=== PATIENT | female | born 1995 | race Caucasian/White ===

== ENCOUNTER 2023-06-23 14:28 | Emergency (ER) | payer OTHER, SELFPAY ==
[2023-06-23] VITALS (16 sets, daily range): BP systolic 102–146; BP diastolic 56–93; PULSE 64–125; RESP 13–23; TEMP 36.9; O2SAT 96–100; BMI 22.6
--- NOTE | 2023-06-23 14:38 | DI.RAD.S_ITS ---
PROCEDURE: XR CHEST 1V INDICATIONS: chest pain TECHNIQUE: One view of the chest was acquired. COMPARISON: None. FINDINGS: Surgical changes and devices: None. Lungs and pleura: Lungs are clear. No pleural effusions or pneumothorax. Mediastinum: Mediastinal contours appear normal. Heart size is normal. Bones and chest wall: No suspicious bony lesions. Overlying soft tissues appear unremarkable. IMPRESSION: Normal portable chest. Dictated by: Odilon Matute M.D. on 06/23/2023 at 13:54 Approved by: Odilon Matute M.D. on 06/23/2023 at 13:55
--- NOTE | 2023-06-23 14:58 | ED_ITS ---
HPI - Chest Pain General Chief Complaint: Chest Pain Stated Complaint: neck pain/dizziness/near syncope Time Seen by Provider: 06/23/23 14:58 Source: patient and family Mode of arrival: Ambulatory History of Present Illness HPI narrative: 27-year-old woman with no significant medical history. She had a negative test on June 12 with a Depo-Provera injection that same day, she is been on this medication for over 10 years. On June 16 she had an episode while at work, she works as a waiter/waitress tavern, with brief palpitations followed by upper extremity paresthesias that lasted for a few moments only. She is had recurrent episodes of palpitations with acute dizziness describes some posterior neck pain radiating up from the back that feels like her head is going to explode. She does not describe any anxiety nor history of anxiety with any of this. With some of the episodes she has noticed shortness of breath and tight chest. She notes that increased burping can sometimes be helpful, this is quite unusual for her. She does have a history of intermittent headaches for which she uses small amounts of ibuprofen. She is been seen at [facility] twice this week for similar complaints, on June 18 and June 20. With these workups she is had reportedly normal EKGs (EKGs itself is not available for review and report is ?normal? actual QT is not reported) normal blood work, D- dimer, sensitive troponin and thyroid study. She tried to get into see her primary care doctor and 1st appointment is available July 15. She continues to have intermittent episodes of paresthesias in the upper and lower extremities that are brief and described as zinging type pain. She notes that she is had episodes that do seem to be positional with her head both left, right and looking up but symptoms are not consistently reproduced with head movement. She does not describe significant vertigo. She is had no recent fevers, upper respiratory infections or immunizations. There is no history of neurologic disease or complex migraine in her family Related Data Allergies Allergy/AdvReac Type Severity Reaction Status Date / Time No Known Drug Allergies Allergy Verified 06/23/23 14:44 Review of Systems Review of Systems Narrative: Pertinent positive and negative findings as per HPI Patient History Social History Smoking Status: Current every day smoker Smoking Status: Current every day smoker tobacco type: vaping Substance Use Type: does not use Exam Initial Vital Signs Initial Vital Signs: Vital Signs Temperature 98.5 F 06/23/23 14:30 Pulse Rate 125 H 06/23/23 14:30 Respiratory Rate 20 06/23/23 14:30 Blood Pressure 146/93 H 06/23/23 14:30 Pulse Oximetry 99 06/23/23 14:30 Oxygen Delivery Method Room Air 06/23/23 14:30 General: Healthy appearing, in no acute distress. Able to give a complete and coherent history. Well-nourished well-developed HEENT: Moist mucous membranes, normal sclera with reactive pupils, symptoms are not reproduced with provocative head maneuvers Neck: No cervical adenopathy, no thyroid masses or nodules, supple Respiratory: Lungs are clear to auscultation, no wheezing no rales no rhonchi. Full and symmetrical air movement Cardiac: Regular rate and rhythm no murmurs no bruits. Heart rate does increase over 20 points when going from a sitting to a standing position Abdomen: Soft, nontender, good bowel tones, no flank pain Skin: Warm and dry, no rashes Neurologic: Grossly neurologically intact with no obvious asymmetries or abnormalities, no hyper reflexia, no reproducible paresthesias at this time Extremities: No trauma, well perfused Psych: Cooperative, appropriate insight and affect Course Orders Ordered: ED Orders 06/23/23 14:38 XR chest 1V Stat EKG-12 Lead Stat 06/23/23 14:48 Complete Blood Count AUTO DIFF Stat Comprehensive Metabolic Panel Stat Lipase Stat Magnesium Stat PTT Partial Thromboplastin Harley Stat Prothrombin Time INR Stat Troponin & CK Cardiac Panel Stat 06/23/23 15:35 MR head/brain wo/w con Stat Discontinued Medications Diphenhydramine HCl (Diphenhydramine 50 Mg/Ml Vial) 25 mg IV NOW ONE Stop: 06/23/23 15:46 Last Admin: 06/23/23 16:39 Dose: 25 mg Documented By: CORTNEY Sodium Chloride (Normal Saline 0.9%) 1,000 mls @ 1,000 mls/hr IV BOLUS ONE Stop: 06/23/23 16:44 Last Infusion: 06/23/23 17:41 Dose: Infused Documented By: Admin: 06/23/23 16:39 Dose: 1,000 mls/hr Documented By: CORTNEY Ketorolac Tromethamine (Ketorolac 30 Mg/Ml Vial) 15 mg IV NOW ONE Stop: 06/23/23 15:46 Last Admin: 06/23/23 16:37 Dose: 15 mg Documented By: CORTNEY Metoclopramide HCl (Metoclopramide 10 Mg/2 Ml Inj) 10 mg IV NOW ONE Stop: 06/23/23 15:46 Last Admin: 06/23/23 16:37 Dose: 10 mg Documented By: CORTNEY Vital Signs Vital signs: Vital Signs - 8 hr 06/23/23 14:30 06/23/23 14:51 06/23/23 14:57 Temperature 98.5 F Pulse Rate 125 H 90 Respiratory Rate 20 14 Blood Pressure 146/93 H 122/58 L Pulse Oximetry 99 Oxygen Delivery Method Room Air 06/23/23 14:57 06/23/23 15:00 06/23/23 15:00 Temperature Pulse Rate 96 H 80 Respiratory Rate 14 14 Blood Pressure 115/61 Pulse Oximetry 100 100 Oxygen Delivery Method 06/23/23 15:30 06/23/23 15:30 06/23/23 16:33 Temperature Pulse Rate 74 68 Respiratory Rate 15 20 Blood Pressure 114/69 Pulse Oximetry 96 Oxygen Delivery Method 06/23/23 16:35 06/23/23 16:35 06/23/23 16:49 Temperature Pulse Rate 77 Respiratory Rate 19 Blood Pressure 110/70 109/68 Pulse Oximetry 100 Oxygen Delivery Method 06/23/23 16:49 06/23/23 17:00 06/23/23 17:30 Temperature Pulse Rate 68 69 64 Respiratory Rate 23 22 16 Blood Pressure 112/68 Pulse Oximetry 100 100 100 Oxygen Delivery Method 06/23/23 17:36 06/23/23 17:36 06/23/23 17:45 Temperature Pulse Rate 76 69 Respiratory Rate 19 16 Blood Pressure 110/63 Pulse Oximetry 100 99 Oxygen Delivery Method 06/23/23 17:45 Temperature Pulse Rate Respiratory Rate Blood Pressure 102/58 L Pulse Oximetry Oxygen Delivery Method MDM - Chest Pain Lab Data 06/23/23 14:48 06/23/23 14:48 Labs: Lab Results 06/23/23 Range/Units 14:48 WBC 6.5 (4.5-11.0) X10^3/uL RBC 4.95 (4.0-5.2) X10^6/uL Hgb 15.9 (12.0-16.0) g/dL Hct 45.9 (36-46) % MCV 92.8 (80-100) fL MCH 32.1 (26-34) PG MCHC 34.6 (30-36) % RDW 12.0 (11.6-14.8) % Plt Count 251 (150-400) X10^3/uL Neut % (Auto) 57.9 (50-75) % Lymph % (Auto) 34.2 (25-40) % Levy % (Auto) 6.5 (3-14) % Eos % (Auto) 0.7 L (2-4) % Baso % (Auto) 0.7 (0-2) % Neut # (Auto) 3800 (5662-1119) /uL Lymph # (Auto) 2200 (5305-8053) /uL Levy # (Auto) 400 (0-900) /uL Eos # (Auto) 0 (0-450) /uL Baso # (Auto) 0 (0-100) /uL PT 11.9 (10.1-12.7) SECONDS INR 1.0 (0.9-1.3) APTT 30 (26-36) SECONDS Sodium 140 (137-145) mmol/L Potassium 3.3 L (3.4-5.1) mmol/L Chloride 106 (98-107) mmol/L Carbon Dioxide 20 L (22-32) mmol/L BUN 13 (7-17) mg/dL Creatinine 0.75 (0.52-1.04) mg/dL Estimated GFR > 60 (>60) mL/min BUN/Creatinine Ratio 17.3 (6-22) Glucose 102 H (70-100) mg/dL Calcium 10.0 (8.4-10.2) mg/dL Magnesium 2.2 (1.6-2.3) mg/dL Total Bilirubin 0.8 (0.2-1.3) mg/dL AST 22 (14-36) IU/L ALT 19 (<35) IU/L Alkaline Phosphatase 59 (38-126) U/L Total Creatine Kinase 58 (30-135) U/L Troponin I < 0.012 (0.01-0.034) ng/mL Total Protein 8.7 H (6.3-8.2) g/dL Albumin 5.1 H (3.5-5.0) g/dL Globulin 3.6 (1.7-4.1) g/dL Albumin/Globulin Ratio 1.4 (1.0-2.8) Lipase 91 (23-300) U/L MDM Narrative Medical decision making narrative: CC: Acute onset over 1 week with intermittent paresthesias, dizziness, palpitations and headache Complicating co-morbidities: No history of depression, anxiety. She does have regular headaches and mild migraines Data collected from: patient, Medical records reviewed: ER notes from [facility] on June 18 and are reviewed Differential considered: Cardiac arrhythmia, complex migraine, multiple sclerosis, brain tumor Exam documented above, pertinent findings include: Mild orthostasis with heart rate increasing while standing with otherwise unremarkable exam including neurologic exam Lab Test results independently reviewed as above. Pertinent findings: CBC is entirely unremarkable coagulation studies are reassuring Chemistries show mildly low potassium at 3.4 otherwise unremarkable Independently reviewed EKG sinus rhythm with prolonged QTC at 551 No acute ischemic changes Imaging studies independently reviewed: Chest x-ray is unremarkable Brain MRI is reassuring with no evidence of tumor, mass or multiple sclerosis/demyelinating abnormalities Treatments:IV fluid, IV reglan, IV benadryl and IV toradol Re-evaluations: Headache is significantly improved. She is no longer orthostatic when standing up. Still feels a bit ?off? but overall significantly improved Discussion: 27-year-old woman with acute onset of episodes of near vertigo, sensation that she is going to pass out associated with palpitations sometimes associated with acute turning of her head sometimes with standing sometimes with sitting she is been evaluated at [facility] twice and comes here as symptoms seem to be worsening. Labs are reviewed from [facility]. Physical exam today is reassuring. With the headache I am wondering if she is actually having a migraine/complex migraine to explain her persistent symptoms. With the normal MRI I am not concerned for masses, tumors or demyelinating disorders. Certainly may be a virus with inner ear abnormalities in which case symptoms are going to improve. Of note is her prolonged QT. Notes from [facility] EKGs do not mentioned this. It may be a spurious event but does deserve at least a repeat EKG to see if it persists if so may benefit from cardiology referral. I have given her copies of the records from [facility], my entire note, MRI results, x-ray results and lab studies [place]. [place] have an appointment on the but is hoping to get an ER follow-up sooner than that. Have encouraged her to return if symptoms worsen or she develops new findings. At this point she is safe for discharge Discharge Plan Departure Patient Disposition: Home Clinical Impression: Prolonged QT interval Migraine Qualifiers: Migraine type: unspecified Status migrainosus presence: without status migrainosus Intractability: not intractable Qualified Code(s): G43.909 - Migraine, unspecified, not intractable, without status migrainosus Instructions: DI for Migraine Activity Restrictions/Additional Instructions: Thank you for coming in today I am sorry you have been suffering with these symptoms all week. Fortunately, I am not finding any life-threatening abnormalities. Your blood work is reassuring. There is no evidence of acute coronary syndrome, pulmonary embolism or cardiomyopathy. Your EKG did show a prolonged QTC interval. Your EKG will need to be repeated as an outpatient to see if this was a 1 time abnormality or something that needs further workup as an outpatient We treated your headache with fluids, Toradol, Reglan and Benadryl and that did seem to help. With the fluids your heart rate did not change quite as rapidly going from a sitting to a standing position. The chest x-ray was unremarkable. MRI of your brain shows a beautiful brain with no evidence of tumors, masses and no evidence of multiple sclerosis or other demyelinating diseases. I have given you copies of your labs and imaging reports and encourage you to take all of these medical records with you to your follow-up appointment with your primary care provider. If you find that you are getting worse or develop any new symptoms, please feel free to return to the emergency department for further evaluation. Referrals: ProviderMakayla [Primary Care Provider] - Stand Alone Forms: Patient Portal/API
[2023-06-23 15:23] LABS: Add Manual Diff / Slide Review NO; Basophils Absolute Auto 0 /uL (0-100); Basophils Percent Auto 0.7 % (0-2); Eosinophils Absolute Auto 0 /uL (0-450); Eosinophils Percent Auto 0.7 % (2-4); Hematocrit 45.9 % (36-46); Hemoglobin 15.9 g/dL (12.0-16.0); Lymphocytes Absolute Auto 2200 /uL (1100-4500); Lymphocytes Percent Auto 34.2 % (25-40); Mean Corpuscular HGB Conc 34.6 % (30-36); Mean Corpuscular Hemoglobin 32.1 PG (26-34); Mean Corpuscular Volume 92.8 fL (80-100); Monocytes Absolute Auto 400 /uL (0-900); Monocytes Percent Auto 6.5 % (3-14); Neutrophils Absolute Auto 3800 /uL (1500-7000); Neutrophils Percent Auto 57.9 % (50-75); Platelet Count 251 X10^3/uL (150-400); Red Blood Cell Count 4.95 X10^6/uL (4.0-5.2); White Blood Cell Count 6.5 X10^3/uL (4.5-11.0)
[2023-06-23 15:30] LABS: Prothrombin Time 11.9 SECONDS (10.1-12.7)
[2023-06-23 15:33] LABS: PTT Partial Thromboplastin Tim 30 SECONDS (26-36)
[2023-06-23 15:35] LABS: Alanine Aminotransferase 19 IU/L (<35); Albumin 5.1 g/dL (3.5-5.0); Albumin Globulin Ratio 1.4 (1.0-2.8); Alkaline Phosphatase 59 U/L (38-126); Aspartate Aminotransferase 22 IU/L (14-36); BUN Creatinine Ratio 17.3 (6-22); Bilirubin Total 0.8 mg/dL (0.2-1.3); Blood Urea Nitrogen 13 mg/dL (7-17); Carbon Dioxide 20 mmol/L (22-32); Chloride 106 mmol/L (98-107); Creatine Kinase 58 U/L (30-135); Estimated Glomerular Filt Rate > 60 mL/min (>60); Globulin 3.6 g/dL (1.7-4.1); Glucose 102 mg/dL (70-100); HEMOLYSIS 18 (0-50); Lipase 91 U/L (23-300); Magnesium 2.2 mg/dL (1.6-2.3); Potassium 3.3 mmol/L (3.4-5.1); Sodium 140 mmol/L (137-145); Total Protein 8.7 g/dL (6.3-8.2)
--- NOTE | 2023-06-23 15:35 | DI.MRI.S_ITS ---
PROCEDURE: MR HEAD/BRAIN WO/W CON INDICATIONS: intermittent dizziness, paresthesia, ? MS TECHNIQUE: Noncontrast sagittal and axial FLAIR, axial and coronal T2 fast spin echo, axial VIBE, axial gradient echo, axial diffusion and ADC through the brain. After the administration of contrast, axial and coronal and sagittal VIBE with fat saturation through the brain. COMPARISON: [facility], CR, XR CHEST 1V, 06/23/2023, 14:38. FINDINGS: Image quality: Excellent. CSF spaces: Ventricles are normal in size and shape. Basal cisterns are patent. No extra-axial fluid collections. Brain: In this patient with this given history, scrutiny is given to No intracranial bleeds or mass effects. Valdivia-white matter interface appears intact. No abnormal intracranial enhancement. Diffusion weighted images show no acute ischemic insults. Brainstem appears normal. Normal intravascular flow voids are present. Skull and face: Calvarial marrow signal is normal. Orbits appear normal. Sinuses: Sinuses and mastoids are clear. IMPRESSION: Brain MRI within normal limits. No suspicious white matter lesions are seen to suggest multiple sclerosis. No masses or abnormal enhancement can be seen. No findings of acute or subacute infarction can be seen. Dictated by: Odilon aMtute M.D. on 06/23/2023 at 15:38 Approved by: Odilon Matute M.D. on 06/23/2023 at 15:40
[2023-06-23 15:46] LABS: Troponin I < 0.012 ng/mL (0.01-0.034)
--- NOTE | 2023-06-23 16:07 | PC.NURSE ---
attempt to administer medications but pt is at MRI currently
--- NOTE | 2023-06-23 16:09 | PC.NURSE ---
Pt in MRI.
--- NOTE | 2023-06-23 16:27 | PC.NURSE ---
Pt just returned from MRI, was in MRI roughly 45 minutes.
[2023-06-23] MEDS: KETOROLAC 30 MG/ML VIAL 15 MG IV (16:37)
[2023-06-23] MEDS: METOCLOPRAMIDE 10 MG/2 ML INJ IV (16:37)
[2023-06-23] MEDS: SODIUM CHLORIDE 0.9% 1,000 ML 1000 ML IV (16:39)
[2023-06-23] MEDS: diphenhydrAMINE 50 MG/ML VIAL 25 MG IV (16:39)
== END 2023-06-23 19:10 | disposition home or self-care (01) ==
PROVIDERS: Emergency Provider Emergency Medicine
DX: G43.909 Migraine, unspecified, not intractable, without status migrainosus (principal); R94.31 Abnormal electrocardiogram [ECG] [EKG]
CPT/HCPCS: 36415; 70553; 71045; 80053; 82550; 83690; 83735; 84484; 85025; 85610; 85730; 93005; 96361; 96374; 96375; 99284; J1200; J1885; J2765

== ENCOUNTER 2024-07-15 10:39 | Emergency (ER) | payer OTHER, SELFPAY ==
[2024-07-15 10:42] VITALS: BP 130/79; PULSE 95; RESP 14; TEMP 36.4; O2SAT 100; BMI 25.8
[2024-07-15 11:36] LABS: Urine Volume 10mL (spun)
[2024-07-15 11:37] LABS: Bacteria Urine None Seen; Culture Indicated Urine Cult Not Indicated; RBC Urine 5-10/HPF (0-5/HPF); Squamous Epithelial Cell Urine 1-5 /HPF (0-5/HPF); WBC Urine None Seen (0-5/HPF)
--- NOTE | 2024-07-15 14:28 | DI.US.S_ITS ---
PROCEDURE: US PELVIC COMPLETE INDICATIONS: PAIN TECHNIQUE: Real-time scanning was performed of the pelvic organs, with image documentation. Additional endovaginal scanning was necessary due to incomplete visualization of the adnexal and endometrial structures by transabdominal scanning. COMPARISON: None. FINDINGS: Uterus: Uterus is retroverted and normal in size at 6.8 x 2.8 x 4.2 cm. The myometrium is homogeneous. The endometrium measures 4.6 mm combined thickness. Ovaries: The right ovary measures 2.4 x 3.5 x 1.6 cm, with a calculated ovarian volume of 7.2 cc. Left ovary is not visualized. The ovaries have a normal sonographic appearance. Less than 12 follicles can be seen in each ovary. No adnexal masses are seen. Other: No pathologic free abdominal or pelvic fluid. IMPRESSION: Left ovary is not visualized. Otherwise, pelvic ultrasound is within normal limits. Approved by: Kian Huynh M.D. on 07/15/2024 at 15:07
--- NOTE | 2024-07-15 14:30 | ED.FEMALEGU ---
HPI - Female Genitourinary <SURAJ Glez Last Filed: 07/15/24 16:36> General Chief complaint: Vaginal Bleeding Stated complaint: Pelvic pain Time Seen by Provider: 07/15/24 13:57 Source: patient Mode of arrival: Ambulatory History of Present Illness HPI Narrative: Ms. Wayne is a pleasant 28-year-old female with no reported past medical history who presents to the emergency department for lower pelvic pain and vaginal bleeding x9 days following weightlifting. Patient reports suprapubic, mild pelvic pressure since weightlifting 9 days ago with vaginal spotting. Patient has been on Depo-Provera shot for many years, and therefore it does not usually have any menstrual bleeding. She is not due for her next dose until August. Reports experiencing similar symptoms in January and was worked up an outside facility with normal labs and imaging. She is but not currently sexually active, has no abnormal discharge, and is not concerned for STDs. She denies dysuria, melena, hematochezia, hematuria, flank pain, fevers, chills, nausea, vomiting, diarrhea, constipation. Related Data Allergies Allergy/AdvReac Type Severity Reaction Status Date / Time No Known Drug Allergies Allergy Verified 07/15/24 10:42 Review of Systems <Ashley Red PA-C - Last Filed: 07/15/24 16:36> Constitutional Constitutional: Denies chills, Denies fatigue, Denies fever(s) and Denies weakness Eyes Eyes: Denies change in vision ENT Ears, Nose, Mouth, and Throat: Denies dizziness Cardiovascular Cardiovascular: Denies chest pain, Denies lightheadedness and Denies dyspnea Respiratory Respiratory: Denies dyspnea Gastrointestinal Gastrointestinal: Denies diarrhea, Denies nausea and Denies vomiting Genitourinary Genitourinary: Reports abnormal vaginal bleeding, Denies hematuria, Denies difficulty voiding, Denies dysuria, Denies genital lesions, Denies dysuria, Reports pelvic pain and Denies vaginal discharge Neurologic Neurologic: Denies dizziness and Denies weakness Endocrine Endocrine: Denies fatigue Patient History <SURAJ Glez Last Filed: 07/15/24 16:36> tobacco type: vaping alcohol intake frequency: holidays/special occasions only Substance Use Type: does not use Exam <Ashley Red PA-C - Last Filed: 07/15/24 16:36> Initial Vital Signs Initial Vital Signs: Vital Signs Temperature 97.5 F L 07/15/24 10:42 Pulse Rate 95 H 07/15/24 10:42 Respiratory Rate 14 07/15/24 10:42 Blood Pressure 130/79 07/15/24 10:42 Pulse Oximetry 100 07/15/24 10:42 Oxygen Delivery Method Room Air 07/15/24 10:42 Const General: cooperative HENMT Head: normocephalic and atraumatic Mouth: moist mucous membranes Eyes Conjunctivae: conjunctivae normal Neck Neck: normal visual inspection Resp Effort & Inspection: normal respiratory effort, able to speak in complete sentences and no respiratory distress Auscultation: clear to auscultation bilaterally Cardio Rate: regular rate GI Inspection: non-distended Palpation: soft, No guarding, No hernia, No mass and tender (mild suprapubic discomfort to palpation) Auscultation: normal bowel sounds Other: Patient gave verbal consent for external genital exam. No inguinal hernias or external abnormalities noted. Tenderness with palpation of the vaginal introitus. Back/Spine/Pelvis Back: No CVA tenderness Skin General: no rashes or lesions noted Neuro General: patient alert and patient oriented x3 Extrem General: full ROM <Maura Hyman DO - Last Filed: 07/21/24 07:39> Initial Vital Signs Initial Vital Signs: Vital Signs Temperature 97.5 F L 07/15/24 10:42 Pulse Rate 95 H 07/15/24 10:42 Respiratory Rate 14 07/15/24 10:42 Blood Pressure 130/79 07/15/24 10:42 Pulse Oximetry 100 07/15/24 10:42 Oxygen Delivery Method Room Air 07/15/24 10:42 Course <Ashley Red PA-C - Last Filed: 07/15/24 16:36> Orders Ordered: Discontinued Medications Acetaminophen (Acetaminophen 325 Mg Tablet) 975 mg PO NOW ONE Stop: 07/15/24 14:36 Last Admin: 07/15/24 15:22 Dose: 975 mg Documented By: KALPESH Vital Signs Vital signs: Vital Signs - 8 hr 07/15/24 10:42 07/15/24 15:19 07/15/24 15:19 Temperature 97.5 F L Pulse Rate 95 H 56 L Respiratory Rate 14 Blood Pressure 130/79 118/67 Pulse Oximetry 100 99 Oxygen Delivery Method Room Air <Maura Hyman DO - Last Filed: 07/21/24 07:39> Orders Ordered: Discontinued Medications Acetaminophen (Acetaminophen 325 Mg Tablet) 975 mg PO NOW ONE Stop: 07/15/24 14:36 Last Admin: 07/15/24 15:22 Dose: 975 mg Documented By: RLS Vital Signs Vital signs: Vital Signs - 8 hr 07/15/24 10:42 07/15/24 15:19 07/15/24 15:19 Temperature 97.5 F L Pulse Rate 95 H 56 L Respiratory Rate 14 Blood Pressure 130/79 118/67 Pulse Oximetry 100 99 Oxygen Delivery Method Room Air MDM - Female Genitourinary <Ashley Red PA-C - Last Filed: 07/15/24 16:36> Medical Records Attestation: I reviewed the patient's medical records. Lab Data Lab results narrative: Labs reveal mild thrombocytopenia. Normal hemoglobin and hematocrit. No leukocytosis. UA reveals positive RBCs. 07/15/24 14:37 07/15/24 14:37 Labs: Lab Results 07/15/24 07/15/24 Range/Units 11:05 14:37 WBC 7.8 (4.5-11.0) X10^3/uL RBC 4.81 (4.0-5.2) X10^6/uL Hgb 15.5 (12.0-16.0) g/dL Hct 44.8 (36-46) % MCV 93.2 (80-100) fL MCH 32.3 (26-34) PG MCHC 34.6 (30-36) % RDW 11.8 (11.6-14.8) % Plt Count 138 L (150-400) X10^3/uL Neut % (Auto) 61.2 (50-75) % Lymph % (Auto) 32.6 (25-40) % [place] % (Auto) 5.4 (3-14) % Eos % (Auto) 0.4 L (2-4) % Baso % (Auto) 0.4 (0-2) % Neut # (Auto) 4700 (0681-2209) /uL Lymph # (Auto) 2500 (7157-9411) /uL [place] # (Auto) 400 (0-900) /uL Eos # (Auto) 0 (0-450) /uL Baso # (Auto) 0 (0-100) /uL Sodium 136 L (137-145) mmol/L Potassium 4.0 (3.4-5.1) mmol/L Chloride 109 H (98-107) mmol/L Carbon Dioxide 16 L (22-32) mmol/L BUN 10 (7-17) mg/dL Creatinine 0.70 (0.52-1.04) mg/dL Estimated GFR > 60 (>60) mL/min BUN/Creatinine Ratio 14.3 (6-22) Glucose 95 (70-100) mg/dL Calcium 9.0 (8.4-10.2) mg/dL Total Bilirubin 1.3 (0.2-1.3) mg/dL AST 34 (14-36) IU/L ALT 11 (<35) IU/L Alkaline Phosphatase 67 (38-126) U/L Total Protein 7.6 (6.3-8.2) g/dL Albumin 4.5 (3.5-5.0) g/dL Globulin 3.1 (1.7-4.1) g/dL Albumin/Globulin Ratio 1.5 (1.0-2.8) Lipase 71 (23-300) U/L Urine RBC 5-10/hpf H (0-5/HPF) Urine WBC None seen (0-5/HPF) Ur Squamous Epith Cells 1-5 /hpf (0-5/HPF) Urine Bacteria None seen (None) Ur Culture Indicated? Cult not indicated Vol Urine Centrifuged 10ml (spun) Point of Care Testing Test Results Negative Urine Dip Bedside Urine Glucose Negative Bedside Urine Bilirubin - Negative Bedside Urine Ketone - Negative Urine Specific [place] 1.005 Bedside Urine Occult Blood +++ Bedside Urine pH 6.5 Bedside Urine Protein - Negative Bedside Urine Urobilinogen - Negative Bedside Urine Nitrite - Negative Bedside Urine Leukocytes - Negative Esterase Imaging Data US - SOFTWARE INTEGRATOR: My Impression: No large fibroid. Left ovary not visualized. Radiologist's Impression: IMPRESSION: Left ovary is not visualized. Otherwise, pelvic ultrasound is within normal limits. MDM Narrative Medical decision making narrative: 28-year-old female with no reported past medical history who presents to the emergency department for lower pelvic pain and vaginal bleeding x9 days following weightlifting. Differential diagnosis includes but is not limited to: UTI, uterine fibroid, cervical polyp, anemia, endometriosis, dysmenorrhea, hernia, ureterolithiasis, etc. On exam patient is in no acute distress, nontoxic appearing, vital signs within normal limits. She has mild suprapubic discomfort and reports vaginal bleeding. No rebound or guarding. We will proceed with abdominal labs, pelvic ultrasound, pelvic exam. HCG is negative. We will treat with Tylenol. Bimanual and speculum examination declined by patient due to vaginal introitus discomfort. She had no external abnormalities. Pelvic ultrasound within normal limits however left ovary not visualized, patient having no left-sided pain. Lab work reassuring no anemia or leukocytosis. She does have mild thrombocytopenia which was discussed and advised repeat CBC with primary care physician. Wet prep vaginal swab negative, culture still pending. Patient advised to practice pelvic rest in addition to avoid heavy lifting until further evaluated by OBGYN. Advised Tylenol/ ibuprofen if needed for pain and we discussed strict ED return precautions. Patient is agreeable to discharge home in stable for discharge at this time. <Maura Hyman, - Last Filed: 07/21/24 07:39> Lab Data Labs: Lab Results 07/15/24 07/15/24 Range/Units 11:05 14:37 WBC 7.8 (4.5-11.0) X10^3/uL RBC 4.81 (4.0-5.2) X10^6/uL Hgb 15.5 (12.0-16.0) g/dL Hct 44.8 (36-46) % MCV 93.2 (80-100) fL MCH 32.3 (26-34) PG MCHC 34.6 (30-36) % RDW 11.8 (11.6-14.8) % Plt Count 138 L (150-400) X10^3/uL Neut % (Auto) 61.2 (50-75) % Lymph % (Auto) 32.6 (25-40) % [place] % (Auto) 5.4 (3-14) % Eos % (Auto) 0.4 L (2-4) % Baso % (Auto) 0.4 (0-2) % Neut # (Auto) 4700 (5988-0999) /uL Lymph # (Auto) 2500 (5750-5310) /uL [place] # (Auto) 400 (0-900) /uL Eos # (Auto) 0 (0-450) /uL Baso # (Auto) 0 (0-100) /uL Sodium 136 L (137-145) mmol/L Potassium 4.0 (3.4-5.1) mmol/L Chloride 109 H (98-107) mmol/L Carbon Dioxide 16 L (22-32) mmol/L BUN 10 (7-17) mg/dL Creatinine 0.70 (0.52-1.04) mg/dL Estimated GFR > 60 (>60) mL/min BUN/Creatinine Ratio 14.3 (6-22) Glucose 95 (70-100) mg/dL Calcium 9.0 (8.4-10.2) mg/dL Total Bilirubin 1.3 (0.2-1.3) mg/dL AST 34 (14-36) IU/L ALT 11 (<35) IU/L Alkaline Phosphatase 67 (38-126) U/L Total Protein 7.6 (6.3-8.2) g/dL Albumin 4.5 (3.5-5.0) g/dL Globulin 3.1 (1.7-4.1) g/dL Albumin/Globulin Ratio 1.5 (1.0-2.8) Lipase 71 (23-300) U/L Urine RBC 5-10/hpf H (0-5/HPF) Urine WBC None seen (0-5/HPF) Ur Squamous Epith Cells 1-5 /hpf (0-5/HPF) Urine Bacteria None seen (None) Ur Culture Indicated? Cult not indicated Vol Urine Centrifuged 10ml (spun) Point of Care Testing Test Results Negative Urine Dip Bedside Urine Glucose Negative Bedside Urine Bilirubin - Negative Bedside Urine Ketone - Negative Urine Specific [place] 1.005 Bedside Urine Occult Blood +++ Bedside Urine pH 6.5 Bedside Urine Protein - Negative Bedside Urine Urobilinogen - Negative Bedside Urine Nitrite - Negative Bedside Urine Leukocytes - Negative Esterase Discharge Plan Departure Patient Disposition: Home Clinical Impression: Vaginal bleeding, Pelvic pain Instructions: DI for Vaginal Bleeding Activity Restrictions/Additional Instructions: Today you were evaluated for vaginal pain and bleeding. Please follow-up with the primary care doctor for repeat complete blood cell count as your platelets were slightly low today. It is very important that you follow-up with an OBGYN for further evaluation of your vaginal discomfort and abnormal bleeding. Please do not do any heavy weight lifting until you are further evaluated by an OBGYN. Return to the emergency department immediately if you develop any new or worsening symptoms, fevers, chills, soaking a pad with blood within 1 hour or less or any other concerning symptoms. You may take Tylenol and ibuprofen alternating as needed for pain. Referrals: ProviderMakayla [Primary Care Provider] - Stand Alone Forms: Patient Portal/API/Survey ED Sign-out <Maura Hyman DO - Last Filed: 07/21/24 07:39> Cosign ED Attending Lillian Attestation: I was immediately available in the department for consultation.
--- NOTE | 2024-07-15 14:39 | PC.NURSE ---
unable to get float in IV, slow, short draw.
[2024-07-15 14:57] LABS: Alanine Aminotransferase 11 IU/L (<35); Albumin 4.5 g/dL (3.5-5.0); Albumin Globulin Ratio 1.5 (1.0-2.8); Alkaline Phosphatase 67 U/L (38-126); Aspartate Aminotransferase 34 IU/L (14-36); BUN Creatinine Ratio 14.3 (6-22); Bilirubin Total 1.3 mg/dL (0.2-1.3); Blood Urea Nitrogen 10 mg/dL (7-17); Carbon Dioxide 16 mmol/L (22-32); Chloride 109 mmol/L (98-107); Estimated Glomerular Filt Rate > 60 mL/min (>60); Globulin 3.1 g/dL (1.7-4.1); Glucose 95 mg/dL (70-100); Lipase 71 U/L (23-300); Sodium 136 mmol/L (137-145); Total Protein 7.6 g/dL (6.3-8.2)
[2024-07-15 14:59] LABS: Add Manual Diff / Slide Review NO; Basophils Absolute Auto 0 /uL (0-100); Basophils Percent Auto 0.4 % (0-2); Eosinophils Absolute Auto 0 /uL (0-450); Eosinophils Percent Auto 0.4 % (2-4); Hematocrit 44.8 % (36-46); Hemoglobin 15.5 g/dL (12.0-16.0); Lymphocytes Absolute Auto 2500 /uL (1100-4500); Lymphocytes Percent Auto 32.6 % (25-40); Mean Corpuscular HGB Conc 34.6 % (30-36); Mean Corpuscular Hemoglobin 32.3 PG (26-34); Mean Corpuscular Volume 93.2 fL (80-100); Monocytes Absolute Auto 400 /uL (0-900); Monocytes Percent Auto 5.4 % (3-14); Neutrophils Absolute Auto 4700 /uL (1500-7000); Neutrophils Percent Auto 61.2 % (50-75); Platelet Count 138 X10^3/uL (150-400); Red Blood Cell Count 4.81 X10^6/uL (4.0-5.2); Red Cell Distribution Width 11.8 % (11.6-14.8); White Blood Cell Count 7.8 X10^3/uL (4.5-11.0)
[2024-07-15 15:00] LABS: HEMOLYSIS 79 (0-50)
[2024-07-15 15:19] VITALS: BP 118/67; PULSE 56; O2SAT 99
[2024-07-15] MEDS: ACETAMINOPHEN 325 MG TABLET 975 MG PO (15:22)
== END 2024-07-15 16:06 | disposition home or self-care (01) ==
PROVIDERS: Emergency Medicine; Emergency Provider Physician Assistant
DX: N93.9 Abnormal uterine and vaginal bleeding, unspecified (principal); R10.2 Pelvic and perineal pain; X50.0XXA Overexertion from strenuous movement or load, initial encounter
CPT/HCPCS: 36415; 76830; 76856; 80053; 81003; 81015; 81025; 83690; 85025; 87070; 87205; 87210; 93976; 99284